=== PATIENT | male | born 1970 | race Two or more races ===

== ENCOUNTER 2016-11-02 21:54 | Emergency (ER) | payer SELFPAY ==
--- NOTE | ~2016-11-02 | ER ---
PATIENT'S NAME: [facility]EN [facility] AGE: 46 Y [address] ROOM: [place] [address] LOCATION: [facility] ADMIT DATE: 11/02/2016 ER/Outpatient Report DISCHARGE DATE: FAMILY PHYSICIAN: Marc Mendoza MD ATTENDING PHYSICIAN: Surjit Liu Time of Arrival: 2151 hours. Time of Evaluation: 2151 hours. CHIEF COMPLAINT: Alcohol poisoning. HISTORY OF PRESENT ILLNESS: The patient arrived per [facility] with IV in place. Fluids of normal saline running at a wide-open rate. He did receive Zofran 4 mg prior to arrival. The patient states he has been staying at his daughter's house to detox, but he stashed alcohol out in a dumpster, and he has been going out and drinking every day. He has been binge drinking over the last 4 days. States today he has had at least a fifth of vodka. Has been nauseated, but not vomiting. Denies having any pain, has had long history of alcohol abuse. ALLERGIES: ATIVAN CAUSES PSYCHOSIS. CURRENT MEDICATIONS: On the chart and reviewed by me. PAST MEDICAL HISTORY: Includes ETOH abuse, GERD, hypertension, and sleep apnea. PAST SURGERIES: Alexa fundoplication. SOCIAL HISTORY: He has been having problems with alcohol abuse for the past 20 years. States he smokes when he drinks. Denies use of drugs. REVIEW OF SYSTEMS: All negative other than those mentioned in the HPI. PHYSICAL EXAMINATION: VITAL SIGNS: Blood pressure is 154/92, pulse of 116, respirations 20, O2 sats 94% on room air. GENERAL: He is awake, alert, and oriented x4. PATIENT'S NAME: DUSTIN KELLEY [facility] AGE: 46 Y [address] ROOM: [place] [address] LOCATION: [facility] ADMIT DATE: 11/02/2016 ER/Outpatient Report DISCHARGE DATE: FAMILY PHYSICIAN: Marc Mendoza MD ATTENDING PHYSICIAN: Surjit Liu SKIN: [place], warm, and dry. RESPIRATIONS: Even and nonlabored. Lung sounds are clear throughout. HEART: Tachycardic, regular rate. ABDOMEN: Soft and nondistended. Bowel sounds are present. EXTREMITIES: The patient is able to stand a little unsteady on his feet. LABORATORY DATA: EKG was completed. It shows sinus tachy. CBC is within normal limits. Chem panel: Sodium is 141, potassium is 3.4, chloride is 105. His alcohol was 0.397. Tylenol is negative. Salicylates are negative. Urine drug screen is negative. The patient does have to urinate frequently. Family is here with him. They state that he has alienated himself from family and friends and has nowhere to go. IV fluids were continued, second liter was initiated. The patient was given thiamine [address] Liu was contacted regarding the patient and will follow up with his care at the change of shift here. SEYMOUR PEREZ APRN FOR MD AVINASH SALEH/kimi /[id number] d: 11/03/16 0234 t: 11/06/16 1815, OUTPATIENT REPORT
--- NOTE | ~2016-11-02 | ER ---
PATIENT'S NAME: DUSTIN KELLEY [facility] AGE: 46 Y [address] ROOM: [place] [address] LOCATION: [facility] ADMIT DATE: 11/02/2016 ER/Outpatient Report DISCHARGE DATE: FAMILY PHYSICIAN: Marc Mendoza MD ATTENDING PHYSICIAN: Surjit Liu This patient is a 46-year-old male who was brought to the emergency room by paramedics by ambulance with the caller who called 911 stating that he overdosed on alcohol. Apparently, he has been binge drinking for the past 3 days. I believe, he is staying with his children. Children came in with his ex- as far as any family for the patient. Karie Orellana saw the patient initially. See her dictation in regard to the chief complaint, history of present illness, past medical history, physical exam, laboratory results. The patient did have an EKG that showed sinus tachycardia. His medical blood alcohol was elevated at 0.397. We did give him thiamin 100 mg IV in the emergency department. I also gave him a total of 3 L of normal saline. We did recheck his medical blood alcohol 7 hours later at 0500 hours and his medical blood level dropped to 0.293. The patient's children did not want him back in their house. His ex- does not want him in her house. Unable to get a hold of his parents at this time. So, we are going to wait until later this morning. Also, we have thoughts of getting care management involved in trying to place him somewhere. He does not need to be in the hospital at this time. IMPRESSION: Acute alcohol intoxication, chronic alcohol abuse. PLAN: The patient will be dismissed from the emergency department. We are going to try to get a hold of his parents and get care management involved in his dismissal. MD ZULLY SALEH/modl /[id number] d: 11/03/16618 t: 11/03/16 1825, OUTPATIENT REPORT
[~2016-11-02 21:54] MED LIST changes: -ATARAX25 MG PO; -FOLIC ACID1 MG PO; -THIAMINE HCL100 MG PO; -TREXAN (REVIA)50 MG PO
[2016-11-02 22:13] LABS: BASOPHIL # 0.1 K/uL (0.0-0.2); BASOPHIL % 1.1 %; EOSINOPHIL % 0.3 %; HEMATOCRIT 42.5 % (37.0-53.0); HEMOGLOBIN 14.5 g/dL (12.0-17.0); IMMATURE GRANULOCYTE % 0.2 %; LYMPHOCYTE # 2.9 K/uL (0.8-4.0); LYMPHOCYTE % 31.2 %; MCH 29.7 pg (27.0-34.0); MCHC 34.1 gm/dL (32.0-36.5); MCV 87.1 fl (83.0-98.0); MONOCYTE # 0.7 K/uL (0.0-1.0); MONOCYTE % 7.6 %; MPV 9.7 fl (9.4-12.4); NEUTROPHIL # (ANC) 5.5 K/uL (1.4-9.0); NEUTROPHIL % 59.6 %; NRBC % 0 /100WBC (0-0.00); PLATELET COUNT 203 K/uL (150-450); RBC 4.88 M/uL (4.00-6.00); RDW-CV 13.5 % (11.9-14.6); WBC 9.2 K/uL (4.0-11.0)
[2016-11-02 22:30] LABS: ALBUMIN 3.9 gm/dL (3.5-5.0); ALK PHOS 63 IU/L (33-138); ALT 32 IU/L (12-78); ANION GAP 15.4 (10.0-19.0); AST 46 IU/L (10-40); BLOOD UREA NITROGEN 14 mg/dL (6-24); CALCIUM 7.3 mg/dL (8.5-10.5); CHLORIDE 105 mMol/L (96-110); CO2 24 mMol/L (22-32); CREATININE 1.2 mg/dL (0.6-1.3); ESTIMATED GFR (MDRD EQUATION) > 60; POTASSIUM 3.4 mMol/L (3.7-5.1); SODIUM 141 mMol/L (135-145); TOTAL BILIRUBIN 0.5 mg/dL (0.0-1.5); TOTAL PROTEIN 7.1 g/dL (6.0-8.4)
[2016-11-02 22:50] LABS: AMPHETAMINE NEGATIVE (NEGATIVE); BARBITURATE NEGATIVE (NEGATIVE); COCAINE NEGATIVE (NEGATIVE); OPIATES NEGATIVE (NEGATIVE)
== END 2016-11-03 08:13 | disposition disaster alternative care site (69) ==
LOC: GMED 21:54
PROVIDERS: Nurse Practitioner Family
DX: F10.129 Alcohol abuse with intoxication, unspecified (principal); I10 Essential (primary) hypertension; K21.9 Gastro-esophageal reflux disease without esophagitis; Y90.8 Blood alcohol level of 240 mg/100 ml or more
CPT/HCPCS: G0480; J3411; J7030

== ENCOUNTER → 2016-11-02 | Outpatient (CLI) | payer SELFPAY ==
[~2016-11-02] MED LIST: ATARAX25 MG PO; FOLIC ACID1 MG PO; THIAMINE HCL100 MG PO; TREXAN (REVIA)50 MG PO; WELLBUTRIN SR150 MG PO
== END | disposition disaster alternative care site (69) ==
LOC: GAMB 21:30
DX: F10.129 Alcohol abuse with intoxication, unspecified (principal); R11.0 Nausea; R41.82 Altered mental status, unspecified
CPT/HCPCS: A0425; A0427; J2405; J7030

== ENCOUNTER 2017-01-03 13:13 | Observation (INO) | payer SELFPAY ==
[~2017-01-03] VITALS: Ht 172.7 cm; Wt 104.6 kg
--- NOTE | ~2017-01-03 | DS ---
PATIENT'S NAME: DUSTIN KELLEY [facility] AGE: 46 Y [address] ROOM: [address] [address] [place] [facility] ADMIT DATE: 01/03/2017 Discharge Summary DISCHARGE DATE: 01/04/2017 FAMILY PHYSICIAN: PHYSICIAN, NO ATTENDING PHYSICIAN: Selina Rollins PRINCIPAL DIAGNOSES: 1. Acute alcoholic intoxication. 2. Alcohol abuse. 3. History of depression. HOSPITAL COURSE: A 46-year-old gentleman who was admitted when the maid called 911 after he was found drowsy next to the vodka bottle. In the emergency department, he was found to be acutely alcoholic intoxicated. CAT scan was done, which did not reveal any significant findings. BMP and CBC and the other lab work was done, which all returned negative except high blood alcohol level, which was 0.392. He was resuscitated with IV fluids as well as thiamine and folic acid. He recovered well during the course of the hospitalization. Psych had done their evaluation and they wanted to follow up. No medication changes were made. HOME MEDICATIONS: Included, 1. Bupropion 150 mg p.o. twice daily. 2. Hydroxyzine 25 mg p.o. q.6 hours p.r.n. 3. Naltrexone 50 mg p.o. every day. 4. Thiamine 100 mg p.o. twice daily. 5. Folic acid 1 mg p.o. daily. PROGRESS NOTE ON THE DAY OF DISCHARGE: SUBJECTIVE: Feeling fine. No chest pain. No shortness of breath. No headache. No fever, no chills. No tremors reported. OBJECTIVE: VITAL SIGNS: 136/100, pulse of 84, 98.3, and respiratory rate of 14. GENERAL: No acute distress. Alert and oriented x3. CARDIOVASCULAR: S1, S2. No murmurs, gallops, or rubs. LUNGS: Clear to auscultation bilaterally. ABDOMEN: Soft, nontender, nondistended. Bowel sounds present. EXTREMITIES: No clubbing or cyanosis or edema was noted. LABORATORY DATA: Lab work from the day of discharge was unremarkable. ACTIVITY: As tolerated. No driving today. Follow up with Dr. Roblero in 2 weeks. PATIENT'S NAME: DUSTIN KELLEY [facility] AGE: 46 Y [address] ROOM: [address] [address] LOCATION: [facility] ADMIT DATE: 01/03/2017 Discharge Summary DISCHARGE DATE: 01/04/2017 FAMILY PHYSICIAN: DAVID DURHAM ATTENDING PHYSICIAN: Selina Rollins MD MANE VALERIO/kimi /[id number] d: 01/05/17 0219 t: 01/07/17 1323, DISCHARGE SUMMARY
--- NOTE | ~2017-01-03 | ER ---
PATIENT'S NAME: DUSTIN KELLEY [facility] AGE: 46 Y [address] ROOM: [place] [address] LOCATION: [facility] ADMIT DATE: 01/03/2017 ER/Outpatient Report DISCHARGE DATE: FAMILY PHYSICIAN: PHYSICIAN, UNKNOWN ATTENDING PHYSICIAN: PATRICIA ROLLINS Time of Arrival: 1310 hours. Time of Evaluation: 1310 hours. CHIEF COMPLAINT: Unresponsive. HISTORY OF PRESENT ILLNESS: The patient is a 46-year-old male, who presents to the emergency department today after being found unresponsive. Apparently, the patient was in a local hotel. He had not checked out, and when the maids went to clean his room, they found him unresponsive. He does not follow commands. He is awake; however, he has a blank stare, does not answer questions. He offers no other history at this time. Previous history is taken from old records. The patient has been seen and evaluated here in the emergency department previously. He does have a long history of alcohol abuse. PAST MEDICAL HISTORY: Alcohol abuse, gastroesophageal reflux disease, hypertension, obstructive sleep apnea. PAST SURGICAL HISTORY: Alexa fundoplication. SOCIAL HISTORY: The patient smoked half pack per day. Does have a strong history of alcohol abuse. Denies any illicit drug use. Apparently has had some issues with his family and apparently being estranged from them. ALLERGIES: TO ATIVAN, WHICH CAUSES HIM TO GO CRAZY. MEDICATIONS: None. PRIMARY CARE DOCTOR: None. REVIEW OF SYSTEMS: All systems are reviewed by myself and are negative with the exception of PATIENT'S NAME: DUSTIN KELLEY [facility] AGE: 46 Y [address] ROOM: [place] [address] LOCATION: [facility] ADMIT DATE: 01/03/2017 ER/Outpatient Report DISCHARGE DATE: FAMILY PHYSICIAN: PHYSICIAN, UNKNOWN ATTENDING PHYSICIAN: PATRICIA ROLLINS those discussed in the HPI and past medical history. PHYSICAL EXAMINATION: VITAL SIGNS: Weight 90.8 kg, blood pressure 136/103, pulse 120, respiratory rate 18, temperature 98.2, oxygen saturation 92% to 93% on room air. GENERAL: The patient is a 46-year-old male, who appears stated age, in no acute distress at this time. HEENT: Head: Normocephalic, atraumatic. Pupils are equal, round, and reactive to light. Does not cooperate with extraocular motions. Nares are patent. Oropharynx is clear. NECK: Supple. There is no nuchal rigidity. CARDIOVASCULAR: Tachycardic. No murmurs, rubs, or gallops. LUNGS: Clear to auscultation bilaterally. No wheezes, rales, or rhonchi. ABDOMEN: Soft, nontender, and nondistended. No rebound, rigidity, or guarding. MUSCULOSKELETAL: The patient moves all 4 extremities. NEUROLOGICAL: He is alert. He does not answer questions appropriately. However, he will say words at times. Downward going toes. No clonus. SKIN: Warm and dry. There are no rashes or lesions noted. LABORATORY DATA AND X-RAYS: EKG is obtained, is interpreted by myself at 1334 hours shows sinus rhythm with a rate of 92, left axis deviation, normal interval. No ST elevation, ST depression, T-wave inversions. CT scan of the head is negative. Ammonia is 51. CBC is normal. Coags are normal. CMP: Sodium 148, otherwise normal. LFTs normal. Alcohol is 0.392. Procalcitonin is less than 0.05. Venous blood gas: 7.37, 54, 50, 31, 4.7. Lactate is 1.8. Lipase is normal. CK, CK- MB, troponin are normal. Acetaminophen is less than 2. Salicylate is less than 2.8. Free T4 is normal. TSH is normal. Urinalysis is unremarkable. IMPRESSION: 1. Alcohol intoxication. 2. Hepatic encephalopathy. 3. Hypernatremia. 4. History of alcohol abuse. 5. Initial visit. EMERGENCY DEPARTMENT COURSE: The patient was brought back to the examination room. Seen and evaluated by myself. IV is established. Laboratory analysis and imaging are obtained as described above. The patient was given 2 L of normal saline as well as a liter of IV banana bag. He was given 100 mg of thiamine IV as well as 1 mg Ativan IV. This Ativan was given to assist in evaluation of the CT scan of the brain. The patient's allergy list was prior to old records being accessible as we were attempting to get a CT scan of the patient's brain prior PATIENT'S NAME: WARRENDUSTIN ASCENCIO [facility] AGE: 46 Y [address] ROOM: [address] [address] LOCATION: [facility] ADMIT DATE: 01/03/2017 ER/Outpatient Report DISCHARGE DATE: FAMILY PHYSICIAN: PHYSICIAN, CHRISTOPHER ATTENDING PHYSICIAN: PATRICIA ROLLINS to knowing the Ativan allergy, which apparently does not seem to be much of an allergy. I did discuss the case with Dr. Rollins who is on-call for the Hospitalist Service. He does agree to accept the patient for further evaluation, treatment, and management. DISPOSITION: The patient is admitted under the care of the Hospitalist Service in stable condition. DO DYLAN ROCHA/kimi /[id number] d: 01/03/172200 t: 01/04/17 0931, OUTPATIENT REPORT
--- NOTE | ~2017-01-03 | HP ---
PATIENT'S NAME: DUSTIN KELLEY [facility] AGE: 46 Y [address] ROOM: [place] [address] LOCATION: [facility] [facility] ADMIT DATE: 01/03/2017 History & Physical DISCHARGE DATE: FAMILY PHYSICIAN: PHYSICIAN, UNKNOWN ATTENDING PHYSICIAN: PATRICIA JENKINS DATE OF SERVICE: ADDENDUM: IMPRESSION AND PLAN: Tobaccoism. Gave him some cessation options and nicotine patch replacement and he deferred at this point in time. We will continue to give cessation education throughout his hospitalization and encourage him to quit. LIZ Lucinda RIVERA APRN, APRN FOR MD ARMOND ESPINOSA/kimi /[id number] D: T: [id number] HISTORY & PHYSICAL
--- NOTE | ~2017-01-03 | HP ---
PATIENT'S NAME: DUSTIN KELLEY [facility] AGE: 46 Y [address] ROOM: [address] [address] [place] [facility] [place] DATE: 01/03/2017 History & Physical DISCHARGE DATE: FAMILY PHYSICIAN: PHYSICIAN, UNKNOWN ATTENDING PHYSICIAN: PATRICIA ROLLINS DATE OF SERVICE: CHIEF COMPLAINT: Alcohol intoxication. HISTORY OF PRESENT ILLNESS: This is a 46-year-old male, who has a significant history of alcohol abuse, who reportedly was found passed out with an empty 1.75 of vodka next to him. A maid called emergency medical services, and he was brought to the ER to find that he was acutely intoxicated with a blood alcohol content of 0.392. A CT scan of his head was done, which ruled out any intracranial abnormalities. He was rather sleepy and hard to arouse. ABGs showed compensated. He did have an elevated ammonia level at 51. Cardiac enzymes were negative. CBC, BMP, and electrolytes were unremarkable. His urinalysis was unremarkable, and a urine drug screen was negative. Upon my review when seeing the patient in the emergency room, he arouses difficultly but does awake and answer orientation questions x3. He occasionally makes some confused statements, but he is able to tell me where he is located. He states he remembers last night as he has been on some medicines to keep him away from drinking, however, he stopped taking those and started drinking. When I asked him if there is a reason why he started drinking, he said it was personal and a part of his christianity and would not elaborate any further. Currently, he states he feels fine. He states he is just tired. He denies any lightheadedness, dizziness. He did get up and ambulate to the bathroom and back without any complications. He denies any chest pain, palpitations, shortness of breath, cough, nausea, vomiting, or diarrhea, and he has been relatively in a normal state of health up into this point. By review with the ER physician and chart review, the patient has been into the emergency room multiple times for alcohol intoxication. He has currently received 3 L of IV fluid, and his tachycardia has normalized. His EKG shows a normal sinus rhythm. He has also received thiamine IV as well as a banana bag. He has also got 1 mg of Ativan. There is some question of history of psychosis with Ativan, but he has had no such response after this current dose. REVIEW OF SYSTEMS: All review of systems was completed and deemed negative other than above. PATIENT'S NAME: DUSTIN KELLEY [facility] AGE: 46 Y [address] ROOM: [place] [address] [place] [facility] [place] DATE: 01/03/2017 History & Physical DISCHARGE DATE: FAMILY PHYSICIAN: PHYSICIAN, UNKNOWN ATTENDING PHYSICIAN: PATRICIA ROLLINS ALLERGIES: ATIVAN REPORTEDLY CAUSES PSYCHOSIS ALTHOUGH HE HAS HAD A DOSE IN THE EMERGENCY ROOM WITHOUT ANY COMPLICATION. CURRENT MEDICATIONS: The patient states he takes Wellbutrin but does not know the dose as well as another medicine to help him stop drinking, most likely, Antabuse, to be confirmed upon admission by the accredited pharmacy technician. PAST MEDICAL HISTORY: 1. Alcohol abuse. 2. History of hypertension? 3. History of sleep apnea. PAST SURGICAL HISTORY: Alexa fundoplication. SOCIAL HISTORY: He has apparently been estranged from his family and recently moved out from his , currently living in a hotel. 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 He is doing bodywork on vehicles. He does smoke tobacco approximately a pack a day as of lately, more when he drinks. He denies any use of illicit drugs. He does drink heavy amount of alcohol, but he is unable to quantify. PHYSICAL EXAMINATION: VITAL SIGNS: Reveal a weight of 90.8 kg, BMI of 29.5. His vital signs show afebrile temperature; normal oxygen saturations at 92% to 93%; initial pulse was 120, is now in the 90s; and blood pressure is 136/103. GENERAL: This is a 46-year-old male, who looks and appears his stated age. He is sleepy on examination, but arouses with voice and answers questions. Generally speaking, he is oriented to person, place, and time, and his surroundings but occasionally make confused statements, and he is uncertain about some of his medical history. HEENT: His head is normocephalic, atraumatic. Eyes: His Extraocular movements are intact. His pupils are mildly dilated 3+. His pupils equal, round, and reactive to light and accommodation. His oropharynx is slightly dry. There is no reddened posterior pharynx. Good dentition with teeth. He smells profoundly of alcohol. NECK: Supple. LUNGS: Reveal symmetric and equal expansion. Clear throughout all luna on auscultation. There are no adventitious sounds. He has unlabored breathing pattern. HEART: Regular rate and rhythm without any gallop or murmur. S1 and S2 present. No pedal edema noted. ABDOMEN: Round, soft, nontender, nondistended. Bowel sound are present PATIENT'S NAME: DUSTIN KELLEY [facility] AGE: 46 Y [address] ROOM: [address] [address] [place] [facility] [place] DATE: 01/03/2017 History & Physical DISCHARGE DATE: FAMILY PHYSICIAN: PHYSICIAN, UNKNOWN ATTENDING PHYSICIAN: PATRICIA ROLLINS throughout all 4 quadrants. : Deferred. EXTREMITIES: Equal and symmetric. He is able to mobilize all 4 extremities equally on command. NEURO STATUS: Cranial nerves 2 through 12 intact. LABORATORY FINDINGS: Pertinent positive laboratory findings include a blood alcohol content of 0.392 and an ammonia of 51. His ABG showed a pH of 7.37 with a pO2 of 50, pCO2 of 54, and a bicarb of 31.2. Cardiac enzymes were negative. His CBC shows a white blood cell count of 8.2, hemoglobin of 15.5, hematocrit of 45.7, and platelet count of 242. His chemistry panel showed a glucose 106, a BUN of 12, creatinine 1.0, sodium 148, potassium 3.8, chloride 110, CO2 of 29, calcium 7.4. Liver functions are normal. GFR is greater than 60. His INR is 0.98. Urinalysis is negative for any infectious process. There is mild protein at 15, and microscopic hematuria with blood count of 10 in the microdissection. Urine drug screen is negative for amphetamines, barbiturates, cocaine, opiates, THC, benzodiazepines, and PCP. His lipase is 118. Acetaminophen and salicylate level are negative. TSH and free T4 is normal. Procalcitonin level is negative. RADIOLOGIC IMAGING: CT scan of the head is normal. A chest x-ray showed low lung volumes with no vascular congestion or acute infiltrate. EKG reviewed showing a sinus rhythm with 92 beats per minute. There are no ST changes noted. IMPRESSION AND PLAN: 1. Acute alcohol intoxication with a history of alcohol abuse disorder. We will go ahead and admit the patient in the hospital and aggressively hydrate him as well as give him a Polyvite regimen and place him on alcohol and drug detox pathway orders. We will place him on one-to-one observation for close observation as there have been reports that the patient has been trying to get up on his own, and his safety is concerning. We will consult Social Work to help see if we can arrange for multiple treatment options and discuss CD evaluation once the patient is more awake. He does deny any suicidal thoughts or ideas. 2. Elevated ammonia level. Follow up with a repeat lab. 3. Gastroesophageal reflux disease. We will go ahead and place him on Pepcid twice daily as with the protocol or PPI if confirmed. This is a PATIENT'S NAME: DUSTIN KELLEY [facility] AGE: 46 Y [address] ROOM: [place] [address] [place] [facility] [place] DATE: 01/03/2017 History & Physical DISCHARGE DATE: FAMILY PHYSICIAN: PHYSICIAN, UNKNOWN ATTENDING PHYSICIAN: PATRICIA ROLLINS home medication of his. 4. Questionable history of essential hypertension. We will provide p.r.n. beta sheela therapy for acceleration. 5. Concern for depression. We will confirm if he is on an antidepressant and resume as appropriate. May consider psychiatric consultation and/or counseling options as an outpatient. Above line of management was discussed with the patient and reviewed with Dr. Rollins. All questions were answered with statements of satisfaction. LIZ RIVERA APRN, APRN FOR MD ARMOND ESPINOSA/kimi /[id number] D: T: HISTORY & PHYSICAL
--- NOTE | ~2017-01-03 | CON ---
PATIENT'S NAME: DUSTIN KELLEY [facility] AGE: 46 Y [address] ROOM: [address] [address] [place] [facility] [place] DATE: 01/03/2017 Consultation DISCHARGE DATE: FAMILY PHYSICIAN: PHYSICIAN, NO ATTENDING PHYSICIAN: PATRICIA JENKINS DATE OF CONSULTATION: 01/04/2017 DATA: This is a 46-year-old male, currently admitted to [facility]. Consultation requested by Dr. Upton. DIAGNOSIS: At the time of evaluation is alcohol use disorder, moderate. RECOMMENDATIONS: 1. The patient is not currently suicidal or homicidal, not psychotic. He does not want to go to rehab or IOP at present time, so he may be discharged whenever medically cleared. 2. He already has been on bupropion and naltrexone for the alcohol use disorder, but has not been very consistent, so he has already made some recommendation for this medication, but may continue with these until he has been seen at by myself at [facility]. 3. The patient is recommended to have an appointment to see me at the [facility]. 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 He says that he has been drinking very occasionally, but this time around, just relapsed some few days ago in a way that is endangering his family life actually. The patient says that approximately a month ago, he was put on naltrexone and Wellbutrin, and that has been helping, but he stopped the medication for 2 days, and that was enough for feeling like drinking and that is how he ended up in relapse. The patient has not been psychotic, manic, or hypomanic. No issues with obsession and compulsion, eating disorder, post-traumatization, or gambling. The blood alcohol level this time around was 0.392. SUBSTANCE USE HISTORY: The patient is a smoker of one pack of cigarettes per day. He started drinking at age 17, has been in IOP and rehab in the past. Not doing any PATIENT'S NAME: DUSTIN KELLEY [facility] AGE: 46 Y [address] ROOM: [place] [address] [place] [facility] [place] DATE: 01/03/2017 Consultation DISCHARGE DATE: FAMILY PHYSICIAN: PHYSICIAN, NO ATTENDING PHYSICIAN: PATRICIA JENKINS street drugs. There have been 2 DUIs in the past ages 18 and 23. PAST PSYCHIATRIC HISTORY: The patient was last seen at [facility] in March 2013. Prior trials on Zoloft, Vivitrol, Antabuse, and Depakote. No actual suicide attempts. MEDICAL HISTORY: Per History and Physical. PERSONAL HISTORY: Right now, he is somewhat from his family because of the drinking, but still . Still working in a body shop. No current legal problems that he knows off. HISTORY OF ABUSE: Noncontributory. The patient has never been abused physically, sexually, or psychologically. FAMILY HISTORY: Noncontributory. MENTAL STATUS EXAMINATION: This is a , young man. Cooperative. Good hygiene. Good eye contact. No psychomotor agitation or retardation. Speech is normal in volume, tone, and production. Mood is described as okay, assessed as neutral. Affect is bright, broad, and appropriate to thought content. Thought content is relevant. Patient denying any suicidal or homicidal ideation, denying any auditory or visual hallucinations, denying delusional thoughts. Thought process coherent, congruent. No loosening of association. Insight and judgment seem to be formally intact, just somewhat tainted by substance use. Memory is within normal limits. He is alert and oriented. Intelligence is average. STRENGTHS: Intelligence, access to service. BARRIERS: Just substance use. JANKI SHAH MD PATIENT'S NAME: DUSTIN KELLEY [facility] AGE: 46 Y [address] ROOM: [place] [address] LOC[place]: [facility] DATE: 01/03/2017 Consultation DISCHARGE DATE: FAMILY PHYSICIAN: PHYSICIAN, NO ATTENDING PHYSICIAN: PATRICIA JENKINS HG/modl /[id number] d: 01/04/17 1227 t: 01/05/17 0933, CONSULTATION REPORT
[~2017-01-03 13:13] MED LIST changes: -ATARAX25 MG PO; -FOLIC ACID1 MG PO; -THIAMINE HCL100 MG PO; -TREXAN (REVIA)50 MG PO
[2017-01-03 14:08] LABS: BASOPHIL # 0.1 K/uL (0.0-0.2); BASOPHIL % 0.7 %; EOSINOPHIL % 0.4 %; HEMATOCRIT 45.7 % (37.0-53.0); HEMOGLOBIN 15.5 g/dL (12.0-17.0); IMMATURE GRANULOCYTE % 0.4 %; LYMPHOCYTE # 3.8 K/uL (0.8-4.0); LYMPHOCYTE % 46.2 %; MCH 29.4 pg (27.0-34.0); MCHC 33.9 gm/dL (32.0-36.5); MCV 86.6 fl (83.0-98.0); MONOCYTE # 0.5 K/uL (0.0-1.0); MONOCYTE % 5.8 %; MPV 9.3 fl (9.4-12.4); NEUTROPHIL # (ANC) 3.8 K/uL (1.4-9.0); NEUTROPHIL % 46.5 %; NRBC % 0 /100WBC (0-0.00); PLATELET COUNT 242 K/uL (150-450); RBC 5.28 M/uL (4.00-6.00); WBC 8.2 K/uL (4.0-11.0)
[2017-01-03 14:21] LABS: INR - (THERAPEUTIC) 0.98 (0.92-1.07); PROTIME 10.3 SECONDS (9.8-11.4); PTT 25 SECONDS (25-32)
[2017-01-03 14:30] LABS: ALBUMIN 3.6 gm/dL (3.5-5.0); ALK PHOS 49 IU/L (33-138); ALT 19 IU/L (12-78); AST 15 IU/L (10-40); BLOOD UREA NITROGEN 12 mg/dL (6-24); CHLORIDE 110 mMol/L (96-110); CO2 29 mMol/L (22-32); CPK 283 IU/L (35-332); ESTIMATED GFR (MDRD EQUATION) > 60; POTASSIUM 3.8 mMol/L (3.7-5.1); TOTAL PROTEIN 6.6 g/dL (6.0-8.4)
[2017-01-03 14:32] LABS: ANION GAP 12.8 (10.0-19.0); CALCIUM 7.4 mg/dL (8.5-10.5); SODIUM 148 mMol/L (135-145); TOTAL BILIRUBIN 0.3 mg/dL (0.0-1.5)
[2017-01-03 14:47] LABS: BICARBONATE 31.2 mmol/L (18.0-23.0); LACTATE 1.8 mEq/L (0.50-1.60); PCO2 54 mmHg (35-45); PO2 50 mmHg (80-90)
[2017-01-03 15:37] LABS: BILIRUBIN URINE NEGATIVE (NEGATIVE); BLOOD URINE 10 /UL (NEGATIVE); COLOR URINE YELLOW (YELLOW); GLUCOSE URINE NEGATIVE (NEGATIVE); KETONE URINE NEGATIVE (NEGATIVE); LEUKOCYTES URINE NEGATIVE /UL (NEGATIVE); NITRITE URINE NEGATIVE (NEGATIVE); PROTEIN URINE 15 mg/dL (NEGATIVE); SPEC GRAVITY URINE 1.015 (1.003-1.035); TURBIDITY URINE 1+ (CLEAR); UROBILINOGEN URINE NORMAL (NORMAL)
[2017-01-03 15:46] LABS: BACTERIA URINE FEW (NEGATIVE)
[2017-01-03 15:47] LABS: MUCUS URINE 1+ (NEGATIVE)
[2017-01-03 15:49] LABS: EPITHELIAL URINE 0-2 #/HPF (NEGATIVE); RBC URINE 0-2 #/HPF (NEGATIVE); WBC URINE 0-2 #/HPF (NEGATIVE)
[2017-01-03 15:56] LABS: AMPHETAMINE NEGATIVE (NEGATIVE); BARBITURATE NEGATIVE (NEGATIVE); COCAINE NEGATIVE (NEGATIVE); OPIATES NEGATIVE (NEGATIVE)
--- NOTE | 2017-01-03 20:31 | NUR ---
46 Y/O MALE ADMITTED FOR ALCOHOL INTOXICATION AND HEPATIC ENCEPHALOPATHY. ALLERGIES - LORAZEPAM=AGITATION, BENXODIAZEPINES=CONFUSION & DISORIENTATION, PT IS ALSO LACTOSE INTOLERANT. MEDICAL & SURGICAL HISTORY - LAP DICK 2006, TONSILS, LT ANKLE, REPAIR OF A FACIAL LACERATION 06/05/16. CHRONIC ALCOHOL ABUSE, C/O CHEST PAIN WHEN HE DRINKS, NAUSEA & VOMITINS, SMOKER X29 YRS, SLEEP APNEA, HIATAL HERNIA, HEARTBURN, GERD, FRACTURES, HYPERTENSION. DEPRESSION, ANXIETY, PAST SUICIDAL THOUGHTS/ATTEMPTS. WHEN ASKED, PT STATES THAT HE WAS LIVING WITH HIS PARENTS & THEY KICKED HIM OUT OF THEIR HOUSE A FEW WEEKS AGO. PT STATES HE DOES NOT HAVE A PLACE TO STAY WHEN HE IS DISMISSED FROM THE HOSPITAL. REPORT GIVEN TO PT PRIMARY CARE NURSE LORRIE NAVA ADM EDUCATION NOT DONE PT IS NOT ABLE TO FOCUS OR CONCENTRATE WELL (MEDICAL STATUS).
[2017-01-03] MEDS ORDERED: TREXAN (REVIA)50 MG PO (20:39)
[2017-01-03] MEDS ORDERED: ATARAX25 MG PO (20:39)
[2017-01-03] MEDS ORDERED: THIAMINE HCL100 MG PO (20:40)
--- NOTE | 2017-01-04 03:41 | NUR ---
Significant Event: Patient alert and oriented X3 now. Was disoriented and forgetful. Family came up here demanding to see patient, so Dr. Upton said as long as family took no bags/personal items in family could visit. Pt very upset after family left. Was crying and stating how he is so sick of this disease. INterested in a rehab facility. Also wanting Dr. Pierre to come see him because of past events it has helped. Vitals stable. Hypertensive at times, tachy. Afebrile. IV to L) forearm. Saline locked. Phenobarbital given at 0100. Reactions to benzos, do not give per pt. CIWA down to 2 now. Still 1:1. Will reassess with Dr. upton per housekeeper manager. Patient cannot use phone yet. Head Ct ok. Follow up: Monitor CIWA
[2017-01-04 05:31] LABS: BASOPHIL # 0.1 K/uL (0.0-0.2); EOSINOPHIL # 0.1 K/uL (0.0-0.5); EOSINOPHIL % 1.3 %; HEMATOCRIT 42.4 % (37.0-53.0); HEMOGLOBIN 14.5 g/dL (12.0-17.0); IMMATURE GRANULOCYTE % 0.3 %; LYMPHOCYTE # 3.9 K/uL (0.8-4.0); LYMPHOCYTE % 41.5 %; MCH 29.3 pg (27.0-34.0); MCHC 34.2 gm/dL (32.0-36.5); MCV 85.7 fl (83.0-98.0); MONOCYTE # 0.6 K/uL (0.0-1.0); MONOCYTE % 5.9 %; MPV 9.8 fl (9.4-12.4); NEUTROPHIL # (ANC) 4.6 K/uL (1.4-9.0); NRBC % 0 /100WBC (0-0.00); PLATELET COUNT 227 K/uL (150-450); RBC 4.95 M/uL (4.00-6.00); RDW-CV 12.7 % (11.9-14.6); WBC 9.3 K/uL (4.0-11.0)
[2017-01-04 05:50] LABS: ANION GAP 12.8 (10.0-19.0); BLOOD UREA NITROGEN 13 mg/dL (6-24); CALCIUM 7.8 mg/dL (8.5-10.5); CHLORIDE 108 mMol/L (96-110); CO2 26 mMol/L (22-32); ESTIMATED GFR (MDRD EQUATION) > 60; MAGNESIUM 1.6 mg/dL (1.8-2.6); PHOSPHORUS 3.1 mg/dL (2.5-4.9); POTASSIUM 3.8 mMol/L (3.7-5.1); SODIUM 143 mMol/L (135-145)
--- NOTE | 2017-01-04 14:42 | NUR ---
Introduced self and CM role to Federico, SW program management intern Cherise was present with me during my visit with Federico. He tells me that he lives here in [place] and he was staying with his parents but because of certain issues, he had been staying in a hotel. Federico was listed as self pay on our sheet, he did confirm that he does not have insurance at this time, provided him with the financial assistance application to fill out and complete. Federico tells me that he used to see , but most recently he was seen by a doctor on [place] that he couldn't think of his name at this time. He tells me that he will follow up with that doctor when he leaves or with someone from our [facility] when he is dismissed. He gets his medications through [facility] here in [place]. He does have a S/O, but because of his drinking issues, they don't live together at this time. I asked him about his drinking issues, he tells me that he was doing good for a while, but then he just started to have urges to drink again so he started to drink again. He is employeed and has a job, he also has a good relationship with his boss and considers him a source of support. He states his parents are a good support as well, but they are kind of "fed up with him at this point." He also turns to his Dishtank Operator Hussain who has been there "for me for years and I trust him alot." We talked about resources and that had recommended that he follow up on an outpatient basis. I gave him a list of inpatient/outpatient treatment options in and around [place]. Also on that list was a list of counselors in the area as well. Offered to make him his first follow up appointment with one of these, he tells me he would like to make one with as he was seen by him numerous times in the past and thinks that he can get some good help from him. "I used to go see him and he would give me a shot that helped me not want to drink, but since I don't have insurance anymore I stopped seeing him and just switched to an oral medication that helps with me not wanting to drink that I got from my doctor on [place]." Let him know that I would be happy to make the follow up appointment with Dr. Tilley for him. Once I left his room I did call over to [facility], [phone], talked with Abida, she tells me that her system is down so she can't make an appointment right now, but will call me back when the system is back up. In talking more with Federico, he tells me that he should be able to find someone to come and pick him up when he is ready to be dismissed. He also tells me that he has his phone and his wallet here with his money in it so if he needs a cab, he could call for one. Gave him [employer] resources. Encouraged Federico to try to attend AA meetings and also the local [facility] Recovery Groups on Mondays that he had mentioned to me earlier in my visit with him. He denies any other questions, needs or concerns. CM to continue to follow and assist.
[2017-01-04] MEDS ORDERED: FOLIC ACID1 MG PO (15:31)
--- NOTE | 2017-01-04 15:57 | NUR ---
Discharge: Pt. was explained discharge instructions, educated on alcohol withdrawal and coping with relapse. Left with all belongings and prescriptions. IV removed by nurse. Verbalized understanding, no questions or concerns. Primary nurse notified of VS and discharge. Aide took to front door and driven home by father.
== END 2017-01-04 16:00 | disposition disaster alternative care site (69) ==
LOC: GMED 13:13 → GMSU 17:48
PROVIDERS: Emergency Medicine; ADMIT Internal Medicine
DX: F10.129 Alcohol abuse with intoxication, unspecified (principal); K72.90 Hepatic failure, unspecified without coma; F32.9 Major depressive disorder, single episode, unspecified; K21.9 Gastro-esophageal reflux disease without esophagitis; I10 Essential (primary) hypertension; G47.33 Obstructive sleep apnea (adult) (pediatric); E87.0 Hyperosmolality and hypernatremia; F17.210 Nicotine dependence, cigarettes, uncomplicated; Z79.899 Other long term (current) drug therapy; Z88.8 Allergy status to other drugs, medicaments and biological substances; Z98.890 Other specified postprocedural states
CPT/HCPCS: G0378; G0480; J1650; J2060; J3411; J3475; J7030

== ENCOUNTER → 2017-01-03 | Emergency (ER) | payer SELFPAY ==
[~2017-01-03] MED LIST changes: +ATARAX25 MG PO; +FOLIC ACID1 MG PO; +THIAMINE HCL100 MG PO; +TREXAN (REVIA)50 MG PO
== END | disposition disaster alternative care site (69) ==
LOC: GAMB 12:45
DX: F10.129 Alcohol abuse with intoxication, unspecified (principal); R40.20 Unspecified coma
CPT/HCPCS: A0425; A0427; J7030

== ENCOUNTER 2017-01-24 12:25 | Emergency (ER) | payer SELFPAY ==
--- NOTE | ~2017-01-24 | ER ---
PATIENT'S NAME: DUSTIN KELLEY [facility] AGE: 46 Y [address] ROOM: [place] [address] LOCATION: [facility] ADMIT DATE: 01/24/2017 ER/Outpatient Report DISCHARGE DATE: 01/24/2017 FAMILY PHYSICIAN: Marc Mendoza MD ATTENDING PHYSICIAN: Noam Dwyer Time of Arrival: 1225 hours. Time of Evaluation: 1225 hours. CHIEF COMPLAINT: Alcohol intoxication. HISTORY OF PRESENT ILLNESS: This is a 46-year-old male who presents to the ER via [facility] Unit crew. The patient was staying at the [facility]. The staff there noticed that he had not checked out yet. They went to the room and noticed that he was passed out on the bed at the city [facility] and called the ambulance. The patient was brought in for further evaluation. The patient states he drank a bottle of vodka today. He was recently admitted to the hospital earlier this in December, and he relapsed again this Sunday. He denies any chest pain or shortness of breath. No nausea or vomiting. No diarrhea. No fever or chills. No other problems at this time. ALLERGIES: ATIVAN WHICH MAKES HIM GO CRAZY. MEDICATIONS: Please see medication list in nurse's notes. PAST MEDICAL HISTORY: Hypertension, alcohol abuse, acid reflux, obstructive sleep apnea. PAST SURGICAL HISTORY: Alexa fundoplication. SOCIAL HISTORY: Drinks alcohol. Denies any smoking use. REVIEW OF SYSTEMS: All systems reviewed were negative with the exception of those discussed in the HPI. PHYSICAL EXAMINATION: VITAL SIGNS: Weight 90.2 kg taken, blood pressure is 168/115, pulse 120, respirations 18, temperature 99.3 degrees tympanically, saturations 92% on PATIENT'S NAME: DUSTIN KELLEY [facility] AGE: 46 Y [address] ROOM: [place] [address] LOCATION: [facility] ADMIT DATE: 01/24/2017 ER/Outpatient Report DISCHARGE DATE: 01/24/2017 FAMILY PHYSICIAN: Marc Mendoza MD ATTENDING PHYSICIAN: Noam Dwyer room air. [place] Coma Score is 15. GENERAL: Alert, intoxicated 46-year-old, in no acute distress. HEENT. Head: Normocephalic. Eyes: Pupils are equal and reactive. He does display moist mucous membranes. LUNGS: Clear to auscultation bilaterally. HEART: Tachycardic. Normal rhythm. ABDOMEN: Soft, it is nontender. He has good bowel sounds throughout. No masses are palpated. SKIN: Warm, dry, and intact. LABORATORY DATA: CBC: White count is 8.9, hemoglobin is 16.2, platelets 241. CMS, sodium is 139, potassium 3.5, glucose is 127, BUN is 14, creatinine is 1.3. Alkaline phosphatase 62, AST 41, ALT is 30. Alcohol level is 0.442. Amylase 74, lipase 726. Acetaminophen is less than 2.0. Salicylate is less than 2.8. Urine drug screen was negative for any drugs. EKG shows sinus tachycardia. IMPRESSION: Alcohol intoxication. ASSESSMENT AND PLAN: The patient has an IV in place from the ambulance. We did infuse a banana bag here in the emergency room. He did rest comfortably his entire stay. The patient states he does not want to stay in the hospital. We will be dismissing the patient to home. He needs to continue to push fluids such as water. He needs to monitor his symptoms, advised no alcohol, and he is to follow up with his primary care physician in 1-2 days. The patient understands and agrees with care. GAUTAM BRITT PA-C FOR DO NICHOLAS ROCHA/kimi /[id number] d: t: 01/27/17 1208, OUTPATIENT REPORT
[2017-01-24 12:54] LABS: BASOPHIL # 0.1 K/uL (0.0-0.2); BASOPHIL % 1.2 %; HEMATOCRIT 46.4 % (37.0-53.0); HEMOGLOBIN 16.2 g/dL (12.0-17.0); IMMATURE GRANULOCYTE % 0.2 %; LYMPHOCYTE # 2.4 K/uL (0.8-4.0); LYMPHOCYTE % 27.4 %; MCH 30.1 pg (27.0-34.0); MCHC 34.9 gm/dL (32.0-36.5); MCV 86.1 fl (83.0-98.0); MONOCYTE # 0.5 K/uL (0.0-1.0); MONOCYTE % 5.3 %; MPV 9.5 fl (9.4-12.4); NEUTROPHIL # (ANC) 5.8 K/uL (1.4-9.0); NEUTROPHIL % 65.9 %; NRBC % 0 /100WBC (0-0.00); PLATELET COUNT 241 K/uL (150-450); RBC 5.39 M/uL (4.00-6.00); RDW-CV 13.6 % (11.9-14.6); WBC 8.9 K/uL (4.0-11.0)
[2017-01-24 13:11] LABS: ALBUMIN 4.1 gm/dL (3.5-5.0); ALK PHOS 62 IU/L (33-138); ALT 30 IU/L (12-78); ANION GAP 16.5 (10.0-19.0); AST 41 IU/L (10-40); BLOOD UREA NITROGEN 14 mg/dL (6-24); CALCIUM 7.8 mg/dL (8.5-10.5); CHLORIDE 103 mMol/L (96-110); CO2 23 mMol/L (22-32); CREATININE 1.3 mg/dL (0.6-1.3); ESTIMATED GFR (MDRD EQUATION) 60; POTASSIUM 3.5 mMol/L (3.7-5.1); SODIUM 139 mMol/L (135-145); TOTAL PROTEIN 7.6 g/dL (6.0-8.4)
[2017-01-24 13:12] LABS: TOTAL BILIRUBIN 0.6 mg/dL (0.0-1.5)
[2017-01-24 13:48] LABS: BARBITURATE NEGATIVE (NEGATIVE); COCAINE NEGATIVE (NEGATIVE); OPIATES NEGATIVE (NEGATIVE)
[2017-01-24 13:50] LABS: AMPHETAMINE NEGATIVE (NEGATIVE)
== END 2017-01-24 14:47 | disposition disaster alternative care site (69) ==
LOC: GMED 12:25
PROVIDERS: Physician Assistant Medical
DX: F10.129 Alcohol abuse with intoxication, unspecified (principal); K21.9 Gastro-esophageal reflux disease without esophagitis; G47.33 Obstructive sleep apnea (adult) (pediatric); I10 Essential (primary) hypertension; Z98.890 Other specified postprocedural states; Z88.8 Allergy status to other drugs, medicaments and biological substances; Z79.899 Other long term (current) drug therapy; Y90.0 Blood alcohol level of less than 20 mg/100 ml
CPT/HCPCS: G0480; J3411; J7030

== ENCOUNTER → 2017-01-24 | Outpatient (CLI) | payer SELFPAY ==
[~2017-01-24] MED LIST changes: +ATARAX25 MG PO; +FOLIC ACID1 MG PO; +THIAMINE HCL100 MG PO; +TREXAN (REVIA)50 MG PO
== END | disposition disaster alternative care site (69) ==
LOC: GAMB 12:04
DX: F10.129 Alcohol abuse with intoxication, unspecified (principal); T51.91XA Toxic effect of unspecified alcohol, accidental (unintentional), initial encounter; R41.82 Altered mental status, unspecified; R00.0 Tachycardia, unspecified; Z79.899 Other long term (current) drug therapy
CPT/HCPCS: A0425; A0427